=== PATIENT | female | born 1945 | race Caucasian/White ===

== ENCOUNTER 2023-05-03 12:30 | Outpatient (CLI) | payer MEDICARE, OTHER ==
--- NOTE | 2023-05-04 17:45 | Ultrasound Report ---
PROCEDURE: Duplex Ext Veins Left INDICATIONS: ACUTE EMBOLISM AND THOMBOS UNSP DEEP VEINS OF L LO TECHNIQUE: Real-time imaging, as well as color and pulse Doppler interrogation, were performed of the lower extr emity deep veins from the inguinal ligament to the popliteal fossa. Attempted visualization of the ca lf veins was performed. COMPARISON: None. FINDINGS: The deep veins are normally compressible, and free of intraluminal thrombus. Color and pu lse Doppler demonstrate normal phasic intraluminal flow. There is normal augmentation response to di stal compression maneuver. IMPRESSION: No deep venous thrombosis of the visualized lower extremity. Reviewed by: Bethanie Bhatti MD on 05/04/2023 5:44 PM PST Approved by: Bethanie Bhatti MD on 05/04/2023 5:44 PM PST Station ID: [id number]
== END 2023-05-03 12:31 | disposition home or self-care (01) ==
LOC: DI 12:30
PROVIDERS: ATTEND Nurse Practitioner Family
DX: I82.402 Acute embolism and thrombosis of unspecified deep veins of left lower extremity (principal)

== ENCOUNTER 2023-12-23 14:45 | Outpatient (CLI) | payer MEDICARE, OTHER ==
[2023-12-23] MEDS: ALBUTEROL 1 PUFF INH STA (16:35)
== END 2023-12-23 14:46 | disposition home or self-care (01) ==
LOC: RT 14:45
PROVIDERS: ATTEND Internal Medicine
DX: J44.9 Chronic obstructive pulmonary disease, unspecified (principal)
CPT/HCPCS: 94060; 94729